=== PATIENT | female | born 1980 | race Two or more races ===

== ENCOUNTER 2016-12-06 12:36 | Emergency (ER) | payer BC ==
[2016-12-06] MEDS ORDERED: CYCLOBENZAPRINE5 M1 PO (15:32)
[2016-12-06] MEDS ORDERED: DICLOFENAC SODI75 M2 PO (15:32)
== END 2016-12-06 15:37 ==
LOC: EDMED 12:36
DX: S39.012A Strain of muscle, fascia and tendon of lower back, initial encounter (principal); J45.909 Unspecified asthma, uncomplicated; Z98.890 Other specified postprocedural states; X50.1XXA Overexertion from prolonged static or awkward postures, initial encounter; Y92.019 Unspecified place in single-family (private) house as the place of occurrence of the external cause
CPT/HCPCS: J1885; J2360